=== PATIENT | female | born 1985 | race Caucasian/White ===

== ENCOUNTER 2018-04-18 16:04 | Emergency (ER) | payer OTHER ==
[2018-04-18 16:14] VITALS: BP 127/85
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
== END 2018-04-18 18:29 | disposition home or self-care (01) ==
LOC: ED 16:04
DX: S39.012A Strain of muscle, fascia and tendon of lower back, initial encounter (principal); Z88.0 Allergy status to penicillin; V89.2XXA Person injured in unspecified motor-vehicle accident, traffic, initial encounter; Y93.89 Activity, other specified; Y92.89 Other specified places as the place of occurrence of the external cause; Y99.8 Other external cause status
CPT/HCPCS: 99282